=== PATIENT | female | born 1970 | race Caucasian/White ===

== ENCOUNTER 2018-04-26 07:47 | Day surgery (SDC) | END 2018-04-26 16:47 | disposition home or self-care (01) ==

== ENCOUNTER 2019-02-14 05:23 | Day surgery (SDC) | payer OTHER ==
[2019-02-14] VITALS (13 sets, daily range): BP systolic 103–118; BP diastolic 60–77; PULSE 68–78; RESP 14–20; Ht 157.5 cm; Wt 63.2 kg
[~2019-02-14] VITALS: Ht 157.5 cm; Wt 63.2 kg
[2019-02-14] MEDS ORDERED: POLYMYXIN/BACITRACIN 1L IRRIG ONE (06:58)
[2019-02-14] MEDS ORDERED: BUPIVACAINE 0.25% (MPF) 30 ML INJ ONE (06:58)
[2019-02-14] MEDS ORDERED: CYCL10TA7 PO (06:59)
[2019-02-14] MEDS ORDERED: SOD CHLORIDE 0.9% 1,000 ML IV ONE (07:00)
[2019-02-14] MEDS ORDERED: CEFAZOLIN 2 GM/50 ML (PMX) 50 ML IVPB SCH (07:00)
--- NOTE | 2019-02-14 07:12 | PREAC ---
Date/Time of Note Date/Time of Note DATE: 02/14/19 TIME: 07:11 Anesthesia Eval and Record Evaluation Time Pre-Procedure Interview DATE: 02/14/19 TIME: 07:11 Age 48 Sex female NPO: 8 hrs Preoperative diagnosis Right Inguinal Hernia Planned procedure Right Open Inguinal Hernia Repair Past Medical History Past Medical History: None Surgery & Anesthesia Issues No known issue Meds Anticoagulation: No Beta Emeka within 24 hr: No Reason Beta Emeka not given: Pt. not on B-Emeka Reported Medications Cyclobenzaprine Hcl* (Cyclobenzaprine Hcl*) 10 Mg Tablet, 10 MG PO DAILY PRN for MUSCLE SPASMS, #60 TAB 02/14/19 Current Medications Cefazolin Sodium/ Dextrose 50 ml @ 100 mls/hr PRE-OP IVPB ; Start 02/14/19 at 07:00; Stop 02/14/19 at 09:00 Sodium Chloride 1,000 ml @ 75 mls/hr [id number] ONCE IV ; Start 02/14/19 at 07:00; Stop 02/14/19 at 20:19 Meds reviewed: Yes Allergies Coded Allergies: No Known Allergy (Unverified , 02/14/19) NKA PER PRE-OP SHEET Allergies Reviewed: Yes Labs/Studies Labs Reviewed: Reviewed by anesthesiologist test: Negative Studies: ECG (n/a), CXR (n/a) Pre-procedure Exam Last vitals Vital Signs Date Temp Pulse Resp B/P (MAP) Pulse Ox O2 O2 Flow FiO2 Time Delivery Rate 02/14/19 97.8 78 18 117/77 99 Room Air 06:55 (90) Airway: Adequate mouth opening, Adequate thyromental dist Mallampati: Mallampati II Teeth: Normal Lung: Normal Heart: Normal ASA Physical Status ASA physical status: 2 Emergency: None Planned Anesthetic General/MAC: LMA Nerve block: TAP (right) Planned Pain Management Single shot nerve block, Parenteral pain med Pre-operative Attestations Prior to commencing anesthesia and surgery, the patient was re-evaluated, there was verification of: *The patient's identity *The results of appropriate recent lab work and preoperative vital signs *The above evaluation not changing prior to induction *Anesthetic plan, risk benefits, alternative and complications discussed with patient/family; questions answered; patient/family understands, accepts and wishes to proceed. ERIC ZHOU MD February 14, 2019 07:12
[2019-02-14] MEDS ORDERED: METOCLOPRAMIDE 10 MG INJ IV PRN (07:30)
[2019-02-14] MEDS ORDERED: FENTAnyl 50 MCG/ML VIAL IV PRN ×2 (07:30)
[2019-02-14] MEDS ORDERED: ONDANSETRON 4 MG INJ IV PRN (07:30)
[2019-02-14] MEDS ORDERED: LABETALOL HCL 20MG INJ IV PRN (07:30)
[2019-02-14] MEDS ORDERED: MEPERIDINE 25 MG INJ IV PRN (07:30)
[2019-02-14] MEDS ORDERED: HYDROmorphONE 1 MG/5 ML IV SYRINGE IV PRN ×2 (07:30)
[2019-02-14] MEDS ORDERED: OXYCODONE/ACETAMINOPHEN (5/325) TAB PO PRN (07:30)
[2019-02-14] MEDS ORDERED: EPHEDrine 25 MG/5 ML SYG IV PRN (07:30)
[2019-02-14] MEDS ORDERED: DIPHENHYDRAMINE 50 MG INJ IV PRN (07:30)
[2019-02-14] MEDS ORDERED: PROPOFOL 20 ML ONE (07:40)
[2019-02-14] MEDS ORDERED: ROPIVACAINE 0.2% 20 ML VIAL ONE (07:40)
[2019-02-14] MEDS ORDERED: FENTAnyl 50 MCG/ML VIAL ONE (07:40)
[2019-02-14] MEDS ORDERED: CEFAZOLIN 1 GM INJ ONE (07:40)
[2019-02-14] MEDS ORDERED: MIDAZOLAM 1 MG/ML 2 ML INJ ONE (07:40)
[2019-02-14] MEDS ORDERED: METOCLOPRAMIDE 10 MG INJ ONE (08:16)
[2019-02-14] MEDS ORDERED: ONDANSETRON 4 MG INJ ONE (08:16)
[2019-02-14] MEDS ORDERED: SUGAMMADEX SODIUM 200 MG/2 ML VIAL IV ONE (08:16)
[2019-02-14] MEDS ORDERED: KETOROLAC 30 MG INJ ONE (08:16)
[2019-02-14] MEDS ORDERED: DEXAMETHASONE 4 MG/ML 5 ML INJ ONE (08:16)
--- NOTE | 2019-02-14 08:22 | OPR ---
Date/Time of Note Date/Time of Note DATE: 02/14/19 TIME: 08:19 Operative Report Procedure Date: February 14, 2019 Preoperative Diagnosis incarcerated right inguinal hernia Postoperative Diagnosis same Operation/Procedure Performed open right incarcerated inguinal hernia repair with medium ultrapro hernia system mesh Surgeon see signature line Gastrointestinal Technician none Anesthesia Type: general Estimated Blood Loss: 0 - 10 ml's Transfusion none Specimen none Grafts/Implants none Complications none Pt Condition Post Procedure: stable Indications This is a 48-year-old female with symptomatic right incarcerated inguinal hernia. She required surgical repair of the hernia. Risks alternatives benefits and personal were discussed the patient. Potential complications including but not limited to bleeding infection recurrence of hernia mesh infection chronic pain were discussed with the patient. Patient expressed understanding and consents to the operation. Procedure Description Patient is taken to the OR and prepped and draped in usual sterile fashion. Surgical timeout was performed. IV antibiotics given. Right inguinal oblique incision made with a 10 blade. Dissection with cautery was carried down through Dunia's fascia and onto the external oblique. Externally fascia is open with a 15 blade. This incision is extended medially inferiorly lateral superiorly with Metzenbaum scissors. Round ligament is divided allowing for full reduction of the incarcerated hernia. The hernia was then bolstered with the disc portion of the ultra pro hernia system mesh. The disc is secured in place the running 0 Prolene from the pubic tubercle along the shelving edge of the inguinal ligament. Superiorly the disc is secured with interrupted 3-0 Vicryl. [place] mesh is secured in a similar fashion with a running 0 Prolene from the pubic tubercle along the shelving is unlimited. Superiorly the onlay mesh is secured to enter oblique with interrupted 3-0 Vicryl. External oblique is closed with running 3-0 Vicryl. Dunia's fascia was closed with interrupted 3-0 Vicryl. Skin is closed using inzorb observable skin stapler. A tap block was provided by the anesthesiologist. Stressors and dry dressings were applied. Marce VELOZ February 14, 2019 08:22
[2019-02-14] MEDS ORDERED: HYDROCODONE/APAP (5/325) TAB PO ONE (08:30)
--- NOTE | 2019-02-14 09:08 | PAC ---
Date/Time of Note Date/Time of Note DATE: 02/14/19 TIME: 09:08 Post-Anesthesia Notes Post-Anesthesia Note Last documented vital signs Vital Signs Date Temp Pulse Resp B/P (MAP) Pulse Ox O2 O2 Flow FiO2 Time Delivery Rate 02/14/19 97.8 78 18 117/77 99 Room Air 08:55 (90) Activity: WNL Respiratory function: WNL Cardiovascular function: WNL Mental status: Baseline Pain reasonably controlled: Yes Hydration appropriate: Yes Nausea/Vomiting absent: Yes ERIC ZHOU MD February 14, 2019 09:08
[2019-02-14] MEDS ORDERED: HYDROmorphONE 1 MG/ML SYG IV PRN ×2 (10:00)
--- NOTE | 2019-02-14 21:48 | RADRPT ---
Vent Rate: 76 bpm RR Interval: 788 msec [place] Interval: 198 msec QRS Duration: 90 msec QT Interval: 383 msec QTC Interval: 431 msec P-R-T [place]: 18 - 20 - 31 degrees Sinus rhythm...normal P axis, V-rate 50- 99 Electronically Signed By: Tolu Young
== END 2019-02-14 10:38 | disposition home or self-care (01) ==
LOC: SDS 05:23
PROVIDERS: ATTEND Surgery
DX: K40.30 Unilateral inguinal hernia, with obstruction, without gangrene, not specified as recurrent (principal); Z90.710 Acquired absence of both cervix and uterus
CPT/HCPCS: 49507; 71045; 85610; 85730; 93005; J0690; J1100; J1170; J1885; J2175; J2250; J2405; J2765; J2795; J3010; Z7610; C1781

== ENCOUNTER 2019-02-18 07:36 | Inpatient (IN) | payer OTHER ==
[~2019-02-18] VITALS: Ht 157.5 cm; Wt 64.1 kg
[~2019-02-18 07:36] MED LIST: CYCL10TA7 PO
[2019-02-18 07:37] VITALS: Ht 157.5 cm; Wt 64.1 kg
[2019-02-18] MEDS ORDERED: HYDROmorphONE 1 MG/ML SYG IV STA ×2 (08:05→08:40)
[2019-02-18] MEDS ORDERED: ONDANSETRON 4 MG INJ IV STA ×2 (08:05→08:40)
--- NOTE | 2019-02-18 08:09 | ERD ---
ER Documentation Chief Complaint Chief Complaint abdominal pain post hernia repair surgery HPI This is a 48-year-old female that presents to the emergency department severe abdominal pain. The patient is status post incarcerated right inguinal hernia repair with ultra pro hernia mesh that had been placed on February 14, 2019, postop day 4. The patient indicates that 3 AM, 5 hours prior to arrival she developed a mild pain in the right lower quadrant. She indicated that the pain significantly worsened and is now 10 out of 10 in intensity. She did have one bowel movement yesterday but states she has not passed gas. She has not experienced any emesis. She said no fevers or shaking or chills. She states the abdominal pain is exacerbated with movement or touch. She did not take any analgesic medication as she had been prescribed [place] but again did not take any medications. Her surgeon was Dr. Crespo. ROS All systems reviewed and are negative except as per history of present illness. Medications Home Meds Reported Medications Atorvastatin Calcium* (Atorvastatin Calcium*) 20 Mg Tablet, 20 MG PO QHS, #30 TAB 02/18/19 Cyclobenzaprine Hcl* (Cyclobenzaprine Hcl*) 10 Mg Tablet, 10 MG PO DAILY PRN for MUSCLE SPASMS, #60 TAB 02/14/19 Allergies Allergies: Coded Allergies: No Known Allergy (Unverified , 02/14/19) NKA PER PRE-OP SHEET PMhx/Soc History of Surgery: Yes (LT BREAST ,HYSTERECTOMY) Anesthesia Reaction: No Hx Neurological Disorder: No Hx Respiratory Disorders: No Hx Cardiac Disorders: No Hx Psychiatric Problems: No Hx Miscellaneous Medical Probl: No Hx Alcohol Use: No Hx Substance Use: No Hx Tobacco Use: No Physical Exam Vitals Vital Signs Date Temp Pulse Resp B/P (MAP) Pulse Ox O2 O2 Flow FiO2 Time Delivery Rate 02/18/19 98.2 72 20 136/89 98 Room Air 10:51 (105) 02/18/19 98.3 68 18 114/61 100 07:37 (78) Physical Exam Constitutional:Well-developed. Well-nourished. Patient tearful and appeared to be in a significant amount discomfort secondary to pain HEENT:Normocephalic. Atraumatic.Pupils were equal round reactive to light. Moist mucous membranes.No tonsillar exudates. Neck: No nuchal rigidity. No lymphadenopathy. No posterior cervical spine tenderness or step-offs. Respiratory: Not using accessory muscles of respiration.Lungs were clear to auscultation bilaterally. No rhonchi. No rales. No wheezing. Cardiovascular: Regular rate regular rhythm.No murmurs. No rubs were appr eciated.S1, S2 normal. Distal pulses are palpable 2+ bilaterally. GI: Abdomen was soft. Voluntary guarding with no rebound. Significant tenderness around the surgical incision scar in the right lower quadrant however surgical incision scars clean dry and intact with no surrounding erythema warmth or fluctuance. Non Distended. No pulsatile abdominal masses or bruits. Bowel sounds were present and normal. Muscle skeletal: Full range of motion of both the upper and lower extremities bilaterally.Normal muscle tone.No assymetrical calf tenderness or swelling. Skin: No petechia, no purpura. No lesions on the palms or the soles of the feet. No maculopapular rash. NEURO: Patient was alert, awake, orientated x3.No facial droop. Gait observed and normal with no ataxia.Speech had regular rate and rhythm. No focal neurological deficits. Result Diagram: 02/18/1925 02/18/19 0825 Results 24 hrs Laboratory Tests Test 02/18/19 08:25 White Blood Count 11.2 10^3/ul Red Blood Count 5.13 10^6/ul Hemoglobin 15.4 g/dl Hematocrit 45.9 % Mean Corpuscular Volume 89.5 fl Mean Corpuscular Hemoglobin 30.0 pg Mean Corpuscular Hemoglobin Concent 33.6 g/dl Red Cell Distribution Width 12.3 % Platelet Count 263 10^3/UL Mean Platelet Volume 9.4 fl Immature Granulocytes % 7.100 % Neutrophils % % Segmented Neutrophils % (Manual) 63 % Band Neutrophils % (Manual) 1 % Lymphocytes % % Lymphocytes % (Manual) 25 % Reactive Lymphocytes % (Manual) 3 % Monocytes % % Monocytes % (Manual) 4 % Eosinophils % % Eosinophils % (Manual) 1 % Basophils % % Myelocytes % (Manual) 3 % Nucleated Red Blood Cells % 0.0 /100WBC Immature Granulocytes # 0.800 10^3/ul Neutrophils # 10^3/ul Neutrophils # (Manual) 7.1 10^3/ul Band Neutrophils # 0.1 10^3/ul Lymphocytes (Manual) 2.8 10^3/ul Lymphocytes # 10^3/ul Reactive Lymphocytes # 0.3 10^3/ul Monocytes # 10^3/ul Monocytes # (Manual) 0.4 10^3/ul Eosinophils # 10^3/ul Basophils # 10^3/ul Myelocytes # 0.3 10^3/ul Nucleated Red Blood Cells # 10^3/ul Platelet Estimate NORMAL Anisocytosis 1+ Microcytosis 1+ Prothrombin Time 12.6 Sec Prothrombin Time Ratio 1.0 INR International Normalized Ratio 0.93 Activated Partial Thromboplast Time 25.6 Sec Sodium Level 137 mmol/L Potassium Level 4.6 mmol/L Chloride Level 104 mmol/L Carbon Dioxide Level 23 mmol/L Anion Gap 10 Blood Urea Nitrogen 16 mg/dl Creatinine 0.80 mg/dl Est Glomerular Filtrat Rate mL/min > 60 mL/min Glucose Level 121 mg/dl Calcium Level 9.8 mg/dl Total Bilirubin 0.8 mg/dl Direct Bilirubin 0.00 mg/dl Indirect Bilirubin 0.8 mg/dl Aspartate Amino Transf (AST/SGOT) 18 IU/L Alanine Aminotransferase (ALT/SGPT) 32 IU/L Alkaline Phosphatase 86 IU/L Total Protein 7.0 g/dl Albumin 4.1 g/dl Globulin 2.90 g/dl Albumin/Globulin Ratio 1.41 Amylase Level 49 U/L Lipase 31 U/L Current Medications Medications Dose Sig/Trinity Start Time Status Last (Trade) Ordered Route PRN Stop Time Admin Dose Reason Admin 1 mg ONCE STAT 02/18/19 DC 02/18/19 Hydromorphone IV 08:05 08:13 HCl 02/18/19 08:07 (Dilaudid) Ondansetron 4 mg ONCE STAT 02/18/19 DC 02/18/19 HCl (Zofran IV 08:05 08:14 Inj) 02/18/19 08:07 1 mg ONCE STAT 02/18/19 DC 02/18/19 Hydromorphone IV 08:40 08:50 HCl 02/18/19 08:42 (Dilaudid) Ondansetron 4 mg ONCE STAT 02/18/19 DC 02/18/19 HCl (Zofran IV 08:40 08:51 Inj) 02/18/19 08:42 IV Flush 10 ml STK-MED 02/18/19 DC 02/18/19 (NS 10 ml) ONCE .ROUTE 09:09 09:25 02/18/19 09:10 Sodium 100 ml @ ud STK-MED 02/18/19 DC 02/18/19 Chloride ONCE .ROUTE 09:09 09:28 02/18/19 09:10 Iohexol 150 ml STK-MED 02/18/19 DC 02/18/19 (Omnipaque ONCE .ROUTE 09:09 09:25 300mg/ ml) 02/18/19 09:10 Piperacillin 100 ml @ ONCE STAT 02/18/19 DC 02/18/19 Sod/ 200 mls/hr IVPB 11:53 12:34 Tazobactam 02/18/19 12:22 Sod 12 mg ONCE SC 02/18/19 Methylnaltrex 12:00 one [place] (Relistor) Sodium 133 ml ONCE ONCE 02/18/19 DC 02/18/19 Biphosphate/ FL 12:00 12:34 Sodium 02/18/19 12:01 Phosphate (Fleet Enema) Ondansetron 4 mg BRIDGE ORDER 02/18/19 HCl (Zofran PRN IV 12:30 Inj) NAUSEA/VOMITI 02/19/19 12:29 NG 650 mg ER BRIDGE 02/18/19 Acetaminophen PRN PO 12:30 (Tylenol .MILD PAIN 02/19/19 12:29 Tab) 1-3 OR TEMP 1 mg ONCE STAT 02/18/19 DC Hydromorphone IV 12:35 HCl 02/18/19 12:41 (Dilaudid) Procedures/MDM This patient presented to the emergency department with abdominal pain and was seen and evaluated by myself. My differential diagnosis included but was not limited to abdominal aortic aneurysm, appendicitis, pancreatitis, perforated peptic ulcer, perforated viscus or visceral pain such as diverticulitis, DKA, esophagitis, hepatitis or bowel obstruction. The patient was placed on a waste collection driver, continuous pulse oximetry, and IV access was established by nursing staff. The patient was given intravenous Dilaudid and Zofran and required further doses of analgesic medication as her pain did not improve. Due to the patient's abdominal findings on physical exam I do feel is necessary to obtain a CT scan with IV contrast. This was reviewed by the radiologist whom I spoke with. There was subcutaneous emphysema along the right lower ventral abdominal wall and right inguinal canal that appeared to be postsurgical changes most likely a seroma. However the radiologist stated they could not rule out early or developing abscess. However the patient was afebrile with no leukocytosis. The patient did have a tubular soft tissue density structure that was along the cecum. This could represent a Meckel's diverticulum. At this time I did contact the patient's surgeon Dr. Crespo who kindly came to the bedside to evaluate the patient. His clinical suspicion was low for postoperative abscess as well as mine. However given the patient's pain did not improve despite multiple doses of analgesic medication she will prophylactically receive IV antibiotics which include Zosyn. Her symptoms also appear to be a result of constipation secondary to opiate induced constipation as she had previously been taking [place] but stated she stopped taking this in the past 24 hours. The patient received Relistor as well as a Fleet enema. She will be admitted under the care of Dr. Rogers for observation for pain control. Departure Diagnosis: Primary Impression: Postoperative pain Additional Impression: Constipation Constipation type: unspecified constipation type Qualified Codes: K59.00 - Constipation, unspecified Condition: Serious RANDY JAY MD February 18, 2019 08:09
[2019-02-18] MEDS ORDERED: SOD CHLORIDE 0.9% 100 ML ONE (09:09)
[2019-02-18] MEDS ORDERED: IOHEXOL 300MG/ML 150 ML BTL ONE (09:09)
[2019-02-18] MEDS ORDERED: PIPER-TAZO 3.375 GM IV (PMX) 100 ML IVPB STA (11:53)
[2019-02-18] MEDS ORDERED: NA PHOSPHATE/BIPHOS 133 ML ENEMA PR ONE (12:00)
[2019-02-18] MEDS: METHYLNALTREXONE 12 MG/0.6 ML VIAL SC SCH ×2 (12:00→15:54)
[2019-02-18] MEDS ORDERED: ATOR20TA38 PO (12:23)
[2019-02-18] MEDS ORDERED: ONDANSETRON 4 MG INJ IV PRN (12:30)
[2019-02-18] MEDS ORDERED: ACETAMINOPHEN 325 MG TAB PO PRN ×2 (12:30→15:30)
[2019-02-18] MEDS ORDERED: HYDROmorphONE 0.5 MG/0.5 ML SYG IV STA (12:35)
--- NOTE | 2019-02-18 14:03 | CONS ---
DATE OF ADMISSION: 02/18/2019 DATE OF CONSULTATION: 02/18/2019 TYPE OF CONSULTATION: ER, note for general surgery. INDICATION: This is a 48-year-old female who recently had inguinal hernia repair with mesh approxima tely 3 days ago. Postoperatively, the patient was doing well, tolerating pain medication; however, t he patient started to be constipated and had some abdominal pain. She has diffuse abdominal pain. N o nausea or vomiting. No fevers at home. She was evaluated in the ER with blood work showing that s he has no leukocytosis. CT scan was performed showing severe constipation. No other findings on the CAT scan. She does not have any evidence of any small-bowel obstruction. General surgery was consu lted for evaluation. PHYSICAL EXAMINATION: VITAL SIGNS: Afebrile. Vital signs are stable. ABDOMEN: Soft. Incision is clean, dry and intact. She has some right lower quadrant appropriate te nderness and some distention. ASSESSMENT AND PLAN: This is a 48-year-old female status post inguinal hernia repair with severe con stipation. We will attempt enema in the ER. If she does not resolve, she will be admitted to the [facility] for monitoring and pain management. We will follow with the patient in the hospital and is ad mitted. Otherwise, she can see me in the office in clinic. Dictated By: PURVI VELOZ MD SB/REILLY Conf#: [id number] DID#: [id number] CC: ISAC VO MD;*EndCC*
[2019-02-18 14:58] VITALS: BP 119/72; PULSE 82; RESP 18
[2019-02-18] MEDS ORDERED: morphine 2 MG INJ IV PRN (16:00)
[2019-02-18] MEDS: HYDROCODONE/APAP (5/325) TAB PO PRN (16:59)
[2019-02-18] MEDS: HYDROmorphONE 1 MG/ML SYG IV PRN ×2 (19:05→23:16)
[2019-02-18 20:28] VITALS: BP 106/67; PULSE 83; RESP 18
[2019-02-19 01:54] VITALS: BP 104/62; PULSE 83; RESP 18
--- NOTE | 2019-02-19 02:19 | HP ---
DATE OF ADMISSION: 02/18/2019 CHIEF COMPLAINT AND HISTORY OF PRESENT ILLNESS: The patient is a 48-year-old female who recently und erwent a surgery for incarcerated right inguinal hernia on 02/14/2019. The patient was brought into hospital by Dr. Crespo for open right incarcerated inguinal hernia repair with mesh. The patient was di scharged home on the same day; however, the patient returned to ER today with abdominal pain and cons tipation. Pain was rather diffuse; however, it was not associated with fever or chills. No associat ed nausea, vomiting. The patient did not have any abdominal distention. The patient did not have an y fever or chills. The patient was seen in ER and underwent CT of the abdomen and pelvis which revea led postsurgical changes from right inguinal hernia repair. The patient also had been constipated. The patient was seen by Dr. Crespo in the emergency room and diagnosed her with severe constipation. Th e patient is being admitted for further evaluation and management. The patient denies any chest pain or shortness of breath. No history of fever or chills. No history of headache, dizziness, syncope. No history of any joint pain. No history of skin rash. REVIEW OF SYSTEMS: Unremarkable. PAST MEDICAL HISTORY: As stated above. In addition, the patient has history of left partial mastect jacque back in 2018 for breast mass. Pathology, however, revealed fibroadenomatoid nodule. No evidence of malignancy. ALLERGIES: NONE. SOCIAL HISTORY: No smoking or alcohol. FAMILY HISTORY: Noncontributory. PHYSICAL EXAMINATION: GENERAL: Revealed the patient to be awake, alert. VITAL SIGNS: Temperature 98.3, pulse 60, respiration 18, blood pressure 114/61, O2 sat is 100% on ro om air. HEENT: No eye discharge or redness. Conjunctivae and lids are normal. Oropharynx is clear. NECK: Supple. No mass, no thyromegaly. CHEST: Fairly clear. CARDIOVASCULAR: S1, S2 normal. No murmur. ABDOMEN: Soft with mild right lower quadrant tenderness and distention. No signs of wound infection . Bowel sounds plus. EXTREMITIES: No leg edema. NEUROLOGIC: The patient is awake, alert, fairly oriented with no gross focal deficit. LABORATORY DATA: Done in the ER: WBC 11.2, hemoglobin 15.4. Chem-18: Sodium 137, potassium 4.6, B UN 16, creatinine 0.8, glucose 121. Liver enzymes are normal. IMPRESSION: Severe constipation. The patient will be given Fleet enema. The patient also received methylnaltrexone in the ER in addition to IV Zosyn. The patient also will be started on MiraLax twic e a day. We will use SCD for deep venous thrombosis prophylaxis. For pain, the patient will be give n Tylenol, He[place], IV Dilaudid for pain control. Further recommendation will depend on patient's hosp ital course. Dictated By: ISAC VO MD AB/NTS Conf#: [id number] DID#: [id number] CC: PURVI CRESPO MD;*End*
[2019-02-19] MEDS: HYDROmorphONE 1 MG/ML SYG IV PRN ×2 (04:56→09:26)
[2019-02-19 07:57] VITALS: BP 107/64; PULSE 82; RESP 18
[2019-02-19] MEDS: POLYETHYLENE GLYCOL 17 GM PACKET PO SCH ×2 (09:26→19:57)
[2019-02-19] MEDS ORDERED: BISACODYL 10 MG SUPP PR ONE (13:30)
[2019-02-19] MEDS: KETOROLAC 30 MG INJ IV SCH ×2 (13:54→19:47)
[2019-02-19] MEDS: METHYLNALTREXONE 12 MG/0.6 ML VIAL SC SCH (13:54)
[2019-02-19] MEDS ORDERED: FAMOTIDINE 20 MG INJ IV SCH (14:00)
[2019-02-19 14:15] VITALS: BP 116/71; PULSE 99; RESP 16
--- NOTE | 2019-02-19 16:34 | PN ---
DATE: 02/19/2019 SUBJECTIVE: Followup on abdominal pain, recent surgery for incarcerated right inguinal hernia. The patient continues to have abdominal pain mostly in the mid abdomen. The patient reported the incisio n site does not hurt as much as before and there is only minimal discomfort there. The patient did n ot have any nausea or vomiting. No reported abdominal distention. The patient did not have any temp erature spike. PHYSICAL EXAMINATION: GENERAL: The patient is awake, alert. VITAL SIGNS: Temperature 98.5, pulse 82, respiration 18, blood pressure , O2 saturation 97% on room air. HEENT: No eye discharge or redness. Conjunctivae normal. Oropharynx clear. NECK: No mass. CHEST: Fairly clear. CARDIOVASCULAR: S1, S2 normal. ABDOMEN: Soft, nondistended, no rebound tenderness. The patient has mid abdomen and slightly on the right side tenderness. Incision is clean, no discharge. Bowel sounds plus. EXTREMITIES: No leg edema. NEUROLOGIC: The patient is awake, alert, fairly oriented. LABORATORY DATA: WBC 15.6, but no left shift. Chemistry unremarkable. IMPRESSION: 1. Abdominal pain with recent surgery for incarcerated right inguinal hernia. 2. Constipation. PLAN: We will decrease opiates and we will continue and the MiraLax. We will also add Dulcola x suppository. The patient does not look toxic despite elevation of WBC count today. We will contin ue to monitor off antibiotic. We will do followup CBC. If white count continues to go up, we will o btain ID consult. Further recommendation from surgery pending. Dictated By: ISAC GARCIA/REILLY Conf#: [id number] DID#: [id number]
--- NOTE | 2019-02-19 17:36 | PN ---
Date/Time of Note Date/Time of Note DATE: 02/19/19 TIME: 17:35 Assessment/Plan VTE Prophylaxis Risk score (from Ns)>0 risk: 2 SCD applied (from Ns): Yes Pharmacological prophylaxis: other Lines/Catheters IV Catheter Type (from [facility]): [place] Urinary Cath still in place: No Assessment/Plan Assessment/Plan s/p RIH with development of constipation will attempt soap suds enema and mineral oil enema Result Diagram: 02/19/1960102/19/1902 Results 24hrs Laboratory Tests Test 02/19/19 06:02 White Blood Count 15.6 #H Red Blood Count 4.66 Hemoglobin 14.1 Hematocrit 42.4 Mean Corpuscular Volume 91.0 Mean Corpuscular Hemoglobin 30.3 Mean Corpuscular Hemoglobin Concent 33.3 Red Cell Distribution Width 12.4 Platelet Count 239 Mean Platelet Volume 9.4 Immature Granulocytes % 3.100 H Neutrophils % 74.1 Lymphocytes % 15.6 Monocytes % 6.0 Eosinophils % 0.6 Basophils % 0.6 Nucleated Red Blood Cells % 0.0 Immature Granulocytes # 0.490 H Neutrophils # 11.6 H Lymphocytes # 2.4 Monocytes # 0.9 Eosinophils # 0.1 Basophils # 0.1 Nucleated Red Blood Cells # 0.0 Sodium Level 139 Potassium Level 4.3 Chloride Level 105 Carbon Dioxide Level 28 Anion Gap 6 Blood Urea Nitrogen 12 Creatinine 0.82 Est Glomerular Filtrat Rate mL/min > 60 Glucose Level 101 Calcium Level 8.9 Subjective 24 Hr Interval Summary Free Text/Dictation severe constipation after RIH repair had enema with no resolution Exam/Review of Systems Exam Vitals Vital Signs Date Temp Pulse Resp B/P (MAP) Pulse Ox O2 O2 Flow FiO2 Time Delivery Rate 02/19/19 98.4 99 16 116/71 97 14:15 (86) 02/18/19 Room Air 14:58 Intake and Output 02/18/19 02/18/19 02/19/19 1515:00 23:00 07:00 IntakeIntake Total 440 ml 320 ml OutputOutput Total 320 ml BalanceBalance 440 ml 0 ml Exam c/d/i distended abdomen Results Results 24hrs Laboratory Tests Test 02/19/19 06:02 White Blood Count 15.6 #H Red Blood Count 4.66 Hemoglobin 14.1 Hematocrit 42.4 Mean Corpuscular Volume 91.0 Mean Corpuscular Hemoglobin 30.3 Mean Corpuscular Hemoglobin Concent 33.3 Red Cell Distribution Width 12.4 Platelet Count 239 Mean Platelet Volume 9.4 Immature Granulocytes % 3.100 H Neutrophils % 74.1 Lymphocytes % 15.6 Monocytes % 6.0 Eosinophils % 0.6 Basophils % 0.6 Nucleated Red Blood Cells % 0.0 Immature Granulocytes # 0.490 H Neutrophils # 11.6 H Lymphocytes # 2.4 Monocytes # 0.9 Eosinophils # 0.1 Basophils # 0.1 Nucleated Red Blood Cells # 0.0 Sodium Level 139 Potassium Level 4.3 Chloride Level 105 Carbon Dioxide Level 28 Anion Gap 6 Blood Urea Nitrogen 12 Creatinine 0.82 Est Glomerular Filtrat Rate mL/min > 60 Glucose Level 101 Calcium Level 8.9 Medications Medication Current Medications Acetaminophen/ Hydrocodone Bitart ([place] (5/325)) 1 tab Q4H PRN PO MODERATE PAIN LEVEL 4-6 Last administered on 02/18/19at 16:59; Admin Dose 1 TAB; Start 02/18/19 at 15:30 Ondansetron HCl (Zofran Inj) 4 mg Q4H PRN IV NAUSEA AND/OR VOMITING; Start 02/18/19 at 15:30 Acetaminophen (Tylenol Tab) 325 mg Q4H PRN PO MILD PAIN(1-3)OR ELEVATED TEMP; Start 02/18/19 at 15:30 Polyethylene Glycol (Miralax) 17 gm BID PO Last administered on 02/19/19at 0 9:26; Admin Dose 17 GM; Start 02/19/19 at 09:00 Ketorolac Tromethamine (Toradol) 30 mg Q6H IV Last administered on 02/19/19at 13:54; Admin Dose 30 MG; Start 02/19/19 at 13:30; Stop 02/22/19 at 13:29 Methylnaltrexone [place] (Relistor) 12 mg DAILY SC Last administered on 02/19/19at 13:54; Admin Dose 12 MG; Start 02/19/19 at 13:30 Pantoprazole (Protonix Tab) 40 mg DAILY@06 PO ; Start 02/20/19 at 06:00 Marce VELOZ February 19, 2019 17:36
[2019-02-19] MEDS ORDERED: LACTULOSE 30ML CUP PO PRN (18:00)
--- NOTE | 2019-02-19 18:28 | CONS ---
DATE OF ADMISSION: 02/18/2019 DATE OF CONSULTATION: Dear Dr. Vo: Thank you for asking me to see Mrs. Nesbitt on a GI consultation. HISTORY OF PRESENT ILLNESS: As you know, Dominique is a 48-year-old female who underwent a rig ht inguinal hernia which is in an open approach last and she developed pain and she got admi tted to the hospital yesterday. She complains of right lower quadrant pain, suprapubic pain, as well as left lower quadrant pain, but she had inguinal hernia operated on the right side. No nausea, vomiting. No GI bleeding. She had a bowel movement three days ago, but despite an enema, she did not have any bowel movement yesterday or today. No history of chills. No history of jaundice. No diarrhea, no GI bleeding. PAST MEDICAL HISTORY: She had a left breast tumor operated. She also has hysterectomy. SOCIAL HISTORY: The patient does not smoke or drink. PHYSICAL EXAMINATION: GENERAL: The patient is a 48-year-old female who at this time is quite alert, well built. VITAL SIGNS: She is afebrile. The blood pressure is 116/71. CARDIOVASCULAR: Normal heart sounds. RESPIRATORY: Normal breath sounds. ABDOMEN: Soft abdomen. There is evidence of a surgical scar noted in the right groin area in the in guinal area. No tenderness noted at this part. However, the suprapubic region and left lower quadra nt region, there is evidence of some tenderness appreciated. The CAT scan of the abdomen shows postsurgical changes from the right inguinal hernia repair. There is subcutaneous emphysema along the right lower ventral abdominal wall and right inguinal canal. Sma ll fluid is seen within the right inguinal canal. Findings less likely reflect postoperative changes . A developing abscess cannot be excluded on this examination. Tubular soft tissue density structur e along the cecum separate from the terminal ileum and appendix. These findings may reflect divertic ulum. Neoplastic process is not excluded on this examination. Based on the above findings, it is likely that she has an abscess in the right inguinal area. She also has a soft tissue mass in the cecal area. PLAN: At this time, recommend adding Zosyn and Flagyl. Also, recommend ultrasound of that right rashmi in area to see if there is any abscess. I discussed this case with Dr. Veloz. Once again, Dr. Vo, thank you for this consultation. Dictated By: DAVID JEFFREY/NTS Conf#: [id number] DID#: [id number] CC: ISAC VO MD; PURVI VELOZ MD;*EndCC*
[2019-02-19] MEDS ORDERED: MINERAL OIL 133 ML ENEMA PR ONE (18:30)
[2019-02-19] MEDS: PIPER-TAZO 3.375 GM IV (PMX) 100 ML IVPB SCH (18:47)
[2019-02-19] MEDS: metroNIDAZOLE 500 MG/NS (PMX) 100 ML IVPB SCH (19:53)
[2019-02-19 20:00] VITALS: BP 113/71; PULSE 92; RESP 18
[2019-02-20] MEDS: KETOROLAC 30 MG INJ IV SCH ×4 (01:25→19:52)
[2019-02-20 02:17] VITALS: BP 104/56; PULSE 90; RESP 16
[2019-02-20] MEDS: PIPER-TAZO 3.375 GM IV (PMX) 100 ML IVPB SCH ×3 (05:53→23:14)
[2019-02-20] MEDS: PANTOPRAZOLE (EC) 40 MG TAB PO SCH (05:54)
[2019-02-20] MEDS: metroNIDAZOLE 500 MG/NS (PMX) 100 ML IVPB SCH ×3 (06:29→21:28)
[2019-02-20 08:00] VITALS: BP 90/55; PULSE 78; RESP 16
[2019-02-20] MEDS: POLYETHYLENE GLYCOL 17 GM PACKET PO SCH ×2 (08:11→21:28)
[2019-02-20] MEDS: METHYLNALTREXONE 12 MG/0.6 ML VIAL SC SCH (08:12)
[2019-02-20 14:30] VITALS: BP 100/60; PULSE 69; RESP 16
--- NOTE | 2019-02-20 18:07 | PN ---
DATE: 02/20/2019 SUBJECTIVE: The patient's abdominal pain is better. The patient did have 1 bowel movement. No repo rted abdominal distention. No reported vomiting. No reported fever or chills. PHYSICAL EXAMINATION: GENERAL: Revealed the patient to be awake, alert. VITAL SIGNS: Temperature 98.1, pulse 69, respirations 16, blood pressure 100/60, O2 saturation 97% o n room air. HEENT: No eye discharge or redness. NECK: No mass. CHEST: Fairly clear. CARDIOVASCULAR: S1, S2 normal. ABDOMEN: Soft, nondistended. Decreased tenderness. Bowel sounds plus. EXTREMITIES: No leg edema. NEUROLOGIC: The patient is awake, alert, fairly oriented. LABORATORY DATA: Done today, WBC 15 down from 15.6, no left shift. Chemistry unremarkable. IMPRESSION: Abdominal pain and constipation in view of recent history of right inguinal hernia repai r. The patient was seen by Dr. Curtis yesterday and recommended IV Zosyn and Flagyl and also recomme nded local ultrasound of the right groin area. There was a fluid collection in the right inguinal re gion approximately 1 x 6.4 x 2.7 cm. We will wait for further recommendation from Dr. Veloz and Dr. Karri tellez. We will do followup CBC tomorrow. Continue clear liquid diet. Dictated By: ISAC VO MD AB/NTS Conf#: [id number] DID#: [id number] CC: PURVI VELOZ MD;*EndCC*
[2019-02-20 20:00] VITALS: BP 111/71; PULSE 90; RESP 18
--- NOTE | 2019-02-20 20:23 | CONS ---
DATE OF ADMISSION: 02/20/2019 DATE OF CONSULTATION: 02/20/2019 CLINICAL IMPRESSION: The patient was admitted with lower abdominal pain. Recently, the patient unde rwent inguinal hernia repair. The CAT scan of the abdomen shows evidence of a possible right inguin al area abscess. At this time, pelvic ultrasound was done from this location and pelvic ultrasound a t this location showed evidence of a 6 cm fluid collection, probably abscess. PHYSICAL EXAMINATION: VITAL SIGNS: Temperature 98.1. GENERAL: The patient is alert, afebrile. CARDIOVASCULAR: Normal heart sounds. RESPIRATORY: Normal breath sounds. ABDOMEN: Soft abdomen, minimal tenderness noted right inguinal area. LABORATORY WORKUP: WBC is white count is 15,000. CLINICAL IMPRESSION: Right inguinal area abscess. PLAN: Recommend ultrasound-guided aspiration of the abscess. Dictated By: DVAID COUGHLIN MD NC/NTS Conf#: [id number] DID#: [id number] CC: ISAC VO MD; PURVI VELOZ MD;*End*
[2019-02-21] MEDS: KETOROLAC 30 MG INJ IV SCH ×4 (01:07→19:28)
[2019-02-21 02:00] VITALS: BP 98/56; PULSE 81; RESP 18
[2019-02-21] MEDS: PIPER-TAZO 3.375 GM IV (PMX) 100 ML IVPB SCH ×3 (05:33→22:54)
[2019-02-21] MEDS: PANTOPRAZOLE (EC) 40 MG TAB PO SCH (06:00)
[2019-02-21] MEDS: metroNIDAZOLE 500 MG/NS (PMX) 100 ML IVPB SCH ×2 (06:18→14:19)
[2019-02-21 08:44] VITALS: BP 100/67; PULSE 77; RESP 18
[2019-02-21] MEDS: POLYETHYLENE GLYCOL 17 GM PACKET PO SCH ×2 (09:00→21:38)
[2019-02-21] MEDS: METHYLNALTREXONE 12 MG/0.6 ML VIAL SC SCH (09:00)
--- NOTE | 2019-02-21 11:53 | PN ---
Date/Time of Note Date/Time of Note DATE: 02/21/19 TIME: 11:48 Assessment/Plan VTE Prophylaxis Risk score (from Ns)>0 risk: 2 SCD applied (from Ns): Yes Pharmacological prophylaxis: other Lines/Catheters IV Catheter Type (from Nrs): Saline Lock Urinary Cath still in place: No Assessment/Plan Assessment/Plan s/p RIH with seroma vs hematoma vs abscess patient is getting aspiration under imaging will continue to follow patient can get regular diet after the procedure Result Diagram: 02/21/1919 02/21/1919 Results 24hrs Laboratory Tests Test 02/21/19 06:19 White Blood Count 12.1 H Red Blood Count 4.34 Hemoglobin 13.0 Hematocrit 39.9 Mean Corpuscular Volume 91.9 Mean Corpuscular Hemoglobin 30.0 Mean Corpuscular Hemoglobin Concent 32.6 Red Cell Distribution Width 12.3 Platelet Count 200 Mean Platelet Volume 9.7 Immature Granulocytes % 3.900 H Neutrophils % 74.4 Lymphocytes % 14.2 L Monocytes % 5.1 Eosinophils % 1.7 Basophils % 0.7 Nucleated Red Blood Cells % 0.0 Immature Granulocytes # 0.470 H Neutrophils # 9.0 H Lymphocytes # 1.7 Monocytes # 0.6 Eosinophils # 0.2 Basophils # 0.1 Nucleated Red Blood Cells # 0.0 Sodium Level 139 Potassium Level 4.2 Chloride Level 110 Carbon Dioxide Level 24 Anion Gap 5 Blood Urea Nitrogen 17 Creatinine 0.87 Est Glomerular Filtrat Rate mL/min > 60 Glucose Level 85 Calcium Level 8.4 Subjective 24 Hr Interval Summary Free Text/Dictation patient has an u/s showing seroma vs hematoma vs abscess it is scheduled this morning Exam/Review of Systems Exam Vitals Vital Signs Date Temp Pulse Resp B/P (MAP) Pulse Ox O2 O2 Flow FiO2 Time Delivery Rate 02/21/19 98.0 77 18 100/67 95 Room Air 08:44 (78) Intake and Output 02/20/19 02/20/19 02/21/19 1515:00 23:00 07:00 IntakeIntake Total 200 ml 1200 ml 200 ml BalanceBalance 200 ml 1200 ml 200 ml Exam c/d/i Results Results 24hrs Laboratory Tests Test 02/21/19 06:19 White Blood Count 12.1 H Red Blood Count 4.34 Hemoglobin 13.0 Hematocrit 39.9 Mean Corpuscular Volume 91.9 Mean Corpuscular Hemoglobin 30.0 Mean Corpuscular Hemoglobin Concent 32.6 Red Cell Distribution Width 12.3 Platelet Count 200 Mean Platelet Volume 9.7 Immature Granulocytes % 3.900 H Neutrophils % 74.4 Lymphocytes % 14.2 L Monocytes % 5.1 Eosinophils % 1.7 Basophils % 0.7 Nucleated Red Blood Cells % 0.0 Immature Granulocytes # 0.470 H Neutrophils # 9.0 H Lymphocytes # 1.7 Monocytes # 0.6 Eosinophils # 0.2 Basophils # 0.1 Nucleated Red Blood Cells # 0.0 Sodium Level 139 Potassium Level 4.2 Chloride Level 110 Carbon Dioxide Level 24 Anion Gap 5 Blood Urea Nitrogen 17 Creatinine 0.87 Est Glomerular Filtrat Rate mL/min > 60 Glucose Level 85 Calcium Level 8.4 Medications Medication Current Medications Acetaminophen/ Hydrocodone Bitart ([place] (5/325)) 1 tab Q4H PRN PO MODERATE PAIN LEVEL 4-6 Last administered on 02/18/19at 16:59; Admin Dose 1 TAB; Start 02/18/19 at 15:30 Ondansetron HCl (Zofran Inj) 4 mg Q4H PRN IV NAUSEA AND/OR VOMITING; Start 02/18/19 at 15:30 Acetaminophen (Tylenol Tab) 325 mg Q4H PRN PO MILD PAIN(1-3)OR ELEVATED TEMP; Start 02/18/19 at 15:30 Polyethylene Glycol (Miralax) 17 gm BID PO Last administered on 02/20/19at 21:28; Admin Dose 17 GM; Start 02/19/19 at 09:00 Ketorolac Tromethamine (Toradol) 30 mg Q6H IV Last administered on 02/21/19at 07:45; Admin Dose 30 MG; Start 02/19/19 at 13:30; Stop 02/22/19 at 13:29 Methylnaltrexone [place] (Relistor) 12 mg DAILY SC Last administered on 02/20/19at 08:12; Admin Dose 12 MG; Start 02/19/19 at 13:30 Pantoprazole (Protonix Tab) 40 mg DAILY@06 PO Last administered on 02/20/19 05:54; Admin Dose 40 MG; Start 02/20/19 at 06:00 Lactulose (Enulose) 20 gm Q8 PRN PO CONSTIPATION; Start 02/19/19 at 18:00 Piperacillin Sod/ Tazobactam Sod 100 ml @ 200 mls/hr Q8 IVPB Last administered on 02/21/19at 05:33; Admin Dose 200 MLS/HR; Start 02/19/19 at 18:00 Metronidazole 100 ml @ 100 mls/hr Q8 IVPB Last administered on 02/21/19at 06:18; Admin Dose 100 MLS/HR; Start 02/19/19 at 18:30 Marce VELOZ February 21, 2019 11:53
[2019-02-21] MEDS ORDERED: 1/2 NS + KCL 20 MEQ 1,000 ML IV SCH (13:00)
[2019-02-21] MEDS ORDERED: LIDOCAINE 1% (MDV) 20 ML INJ ONE (13:17)
[2019-02-21] MEDS: ONDANSETRON 4 MG INJ IV PRN ×2 (15:05→21:38)
[2019-02-21 16:09] VITALS: BP 122/87; RESP 18
[2019-02-21] MEDS: HYDROCODONE/APAP (5/325) TAB PO PRN ×2 (17:12→23:04)
--- NOTE | 2019-02-21 18:28 | PN ---
Date/Time of Note Date/Time of Note DATE: 02/21/19 TIME: 18:17 Assessment/Plan VTE Prophylaxis Risk score (from Ns)>0 risk: 2 SCD applied (from Ns): Yes Pharmacological prophylaxis: NA/contraindicated Pharm contraindication: surgical contra Lines/Catheters IV [facility]from [facility] Saline Lock Urinary Cath still in place: No Assessment/Plan Hospital Course Patient is status post aspiration of right inguinal hematoma, I ordered cultures, patient is afebrile currently on Zosyn. Patient complains of headache, relieved with [place]. Assessment/Plan -Right inguinal postoperative hematoma versus seroma versus abscess, status aspiration of a right inguinal post-operative hematoma. -Abdominal pain with recent surgery for incarcerated right inguinal hernia by Dr. Crespo. Dr. Curtis is following in gastroenterology consultation. -Constipation, resolved. Further recommendations based on clinical course. Plan of care discussed with Dr. Lee. Result Diagram: 02/21/19 0619 02/21/19 0619 Results 24hrs Laboratory Tests Test 02/21/19 06:19 White Blood Count 12.1 H Red Blood Count 4.34 Hemoglobin 13.0 Hematocrit 39.9 Mean Corpuscular Volume 91.9 Mean Corpuscular Hemoglobin 30.0 Mean Corpuscular Hemoglobin Concent 32.6 Red Cell Distribution Width 12.3 Platelet Count 200 Mean Platelet Volume 9.7 Immature Granulocytes % 3.900 H Neutrophils % 74.4 Lymphocytes % 14.2 L Monocytes % 5.1 Eosinophils % 1.7 Basophils % 0.7 Nucleated Red Blood Cells % 0.0 Immature Granulocytes # 0.470 H Neutrophils # 9.0 H Lymphocytes # 1.7 Monocytes # 0.6 Eosinophils # 0.2 Basophils # 0.1 Nucleated Red Blood Cells # 0.0 Sodium Level 139 Potassium Level 4.2 Chloride Level 110 Carbon Dioxide Level 24 Anion Gap 5 Blood Urea Nitrogen 17 Creatinine 0.87 Est Glomerular Filtrat Rate mL/min > 60 Glucose Level 85 Calcium Level 8.4 Exam/Review of Systems Exam Vitals Vital Signs Date Temp Pulse Resp B/P (MAP) Pulse Ox O2 O2 Flow FiO2 Time Delivery Rate 02/21/19 98.0 18 122/87 94 Room Air 16:09 (99) 02/21/19 77 08:44 Intake and Output 02/20/19 02/20/19 02/21/19 1515:00 23:00 07:00 IntakeIntake Total 200 ml 1200 ml 200 ml BalanceBalance 200 ml 1200 ml 200 ml Constitutional: alert, oriented Neck: supple Respiratory: clear to auscultation Cardiovascular: nl pulses Gastrointestinal: soft, non-tender, other (Status post right inguinal hernia repair) Musculoskeletal: nl extremities to inspection Extremities: normal pulses Neurological: nl mental status Skin: nl turgor Results Results 24hrs Laboratory Tests Test 02/21/19 06:19 White Blood Count 12.1 H Red Blood Count 4.34 Hemoglobin 13.0 Hematocrit 39.9 Mean Corpuscular Volume 91.9 Mean Corpuscular Hemoglobin 30.0 Mean Corpuscular Hemoglobin Concent 32.6 Red Cell Distribution Width 12.3 Platelet Count 200 Mean Platelet Volume 9.7 Immature Granulocytes % 3.900 H Neutrophils % 74.4 Lymphocytes % 14.2 L Monocytes % 5.1 Eosinophils % 1.7 Basophils % 0.7 Nucleated Red Blood Cells % 0.0 Immature Granulocytes # 0.470 H Neutrophils # 9.0 H Lymphocytes # 1.7 Monocytes # 0.6 Eosinophils # 0.2 Basophils # 0.1 Nucleated Red Blood Cells # 0.0 Sodium Level 139 Potassium Level 4.2 Chloride Level 110 Carbon Dioxide Level 24 Anion Gap 5 Blood Urea Nitrogen 17 Creatinine 0.87 Est Glomerular Filtrat Rate mL/min > 60 Glucose Level 85 Calcium Level 8.4 Medications Medication Current Medications Acetaminophen/ Hydrocodone Bitart ([place] (5/325)) 1 tab Q4H PRN PO MODERATE PAIN LEVEL 4-6 Last administered on 02/21/19at 17:12; Admin Dose 1 TAB; Start 02/18/19 at 15:30 Ondansetron HCl (Zofran Inj) 4 mg Q4H PRN IV NAUSEA AND/OR VOMITING Last administered on 02/21/19at 15:05; Admin Dose 4 MG; Start 02/18/19 at 15:30 Acetaminophen (Tylenol Tab) 325 mg Q4H PRN PO MILD PAIN(1-3)OR ELEVATED TEMP; Start 02/18/19 at 15:30 Polyethylene Glycol (Miralax) 17 gm BID PO Last administered on 02/20/19at 21:28; Admin Dose 17 GM; Start 02/19/19 at 09:00 Ketorolac Tromethamine (Toradol) 30 mg Q6H IV Last administered on 02/21/19 14:19; Admin Dose 30 MG; Start 02/19/19 at 13:30; Stop 02/22/19 at 13:29 Methylnaltrexone [place] (Relistor) 12 mg DAILY SC Last administered on at 08:12; Admin Dose 12 MG; Start 02/19/19 at 13:30 Pantoprazole (Protonix Tab) 40 mg DAILY@06 PO Last administered on 02/20/19at 05:54; Admin Dose 40 MG; Start 02/20/19 at 06:00 Lactulose (Enulose) 20 gm Q8 PRN PO CONSTIPATION; Start 02/19/19 at 18:00 Piperacillin Sod/ Tazobactam Sod 100 ml @ 200 mls/hr Q8 IVPB Last administered on 02/21/19at 15:06; Admin Dose 200 MLS/HR; Start 02/19/19 at 18:00 Metronidazole 100 ml @ 100 mls/hr Q8 IVPB Last administered on 02/21/19 14:19; Admin Dose 100 MLS/HR; Start 02/19/19 at 18:30 CORBIN BAÑUELOS February 21, 2019 18:27
[2019-02-21 19:45] VITALS: BP 110/75; PULSE 82; RESP 18
--- NOTE | 2019-02-21 20:44 | CONS ---
Assessment/Plan Assessment/Plan Hospital Course (Demo Recall) - probable hematoma or serosanguinous fluid collection in R inguinal region, 1.0 x 6.4 x 2.7 cm, s/p VINCENT guided drainage on 02/21/2019 - h/o repair of incarcerated R inguinal hernia with mesh on 02/14/2019 - constipation on imaging (Pt did not feel constipated) - h/o L partial mastectomy in 2018 - fibroadenomatoid nodule of L breast - h/o hysterectomy recommendations - pending results: culture results of fluid collection - continue IV pip/tazo empirically. OK to d/c metronidazole management d/w Pt Consultation Date/Type/Reason Admit Date/Time February 20, 2019 at 12:17 Date of Consultation: February 21, 2019 Type of Consult ID Reason for Consultation possible infection of R inguinal area post-surgery Requesting Provider: CORBIN MILLS Date/Time of Note DATE: 02/21/19 TIME: 20:23 Hx of Present Illness This is a 48 yo female who had repair of incarcerated R inguinal hernia with mesh on 02/14/2019. The patient was discharged home. Next three days she has had low grade post-surgical pain only. In the evening of 02/18/2019 she started experiencing worsening pain of R inguinal area. The pain was rated at "20" on the scale of 1-10. Pt presented at ER. CT showed postsurgical changes of R inguinal hernia repair, small fluid in R inguinal canal, either postoperative changes or abscess. It also showed constipation although Pt was having BM and did not feel constipated. Her VINCENT on 02/19/2019 showed fluid collection in R inguinal region measuring 1.0 x 6.4 x 2.7 cm, either abscess, hematoma, or seroma. Pip/tazo and metronidazole were started. Pt was also given laxatives and enema. Today Pt underwent image guided drainage of R inguinal fluid collection. 20mL was aspirated, suggesting post-operative hematoma. At present, Pt reports pain improved to 5. ANNALISE Mills requested ID consultation on this Pt. Constitutional: improved, chills, poor po Eyes: no complaints ENT: no complaints Respiratory: no complaints Cardiovascular: no complaints Gastrointestinal: decreased appetite, flatus, passing stool; No diarrhea Genitourinary: flank pain (R); No bleeding, No dysuria Musculoskeletal: no complaints Skin: erythema (R inguinal area, improved now) Neurologic: no complaints Past Medical History Medical History: other (fibroadenoma of L breast) Home Meds Reported Medications Atorvastatin Calcium* (Atorvastatin Calcium*) 20 Mg Tablet, 20 MG PO QHS, #30 TAB 02/18/19 Cyclobenzaprine Hcl* (Cyclobenzaprine Hcl*) 10 Mg Tablet, 10 MG PO DAILY PRN for MUSCLE SPASMS, #60 TAB 02/14/19 Medications Current Medications Acetaminophen/ Hydrocodone Bitart ([place] (5/325)) 1 tab Q4H PRN PO MODERATE PAIN LEVEL 4-6 Last administered on 02/21/19 17:12; Admin Dose 1 TAB; Start at 15:30 Ondansetron HCl (Zofran Inj) 4 mg Q4H PRN IV NAUSEA AND/OR VOMITING Last administered on 02/21/19 15:05; Admin Dose 4 MG; Start 02/18/19 at 15:30 Acetaminophen (Tylenol Tab) 325 mg Q4H PRN PO MILD PAIN(1-3)OR ELEVATED TEMP; Start 02/18/19 at 15:30 Polyethylene Glycol (Miralax) 17 gm BID PO Last administered on 02/20/19 21:28; Admin Dose 17 GM; Start 02/19/19 at 09:00 Ketorolac Tromethamine (Toradol) 30 mg Q6H IV Last administered on 02/21/19 14:19; Admin Dose 30 MG; Start 02/19/19 at 13:30; Stop 02/22/19 at 13:29 Methylnaltrexone [place] (Relistor) 12 mg DAILY SC Last administered on 02/20/19at 08:12; Admin Dose 12 MG; Start 02/19/19 at 13:30 Pantoprazole (Protonix Tab) 40 mg DAILY@06 PO Last administered on 02/20/19 05:54; Admin Dose 40 MG; Start 02/20/19 at 06:00 Lactulose (Enulose) 20 gm Q8 PRN PO CONSTIPATION; Start 02/19/19 at 18:00 Piperacillin Sod/ Tazobactam Sod 100 ml @ 200 mls/hr Q8 IVPB Last administered on 02/21/19 15:06; Admin Dose 200 MLS/HR; Start 02/19/19 at 18:00 Metronidazole 100 ml @ 100 mls/hr Q8 IVPB Last administered on 02/21/19at 14 :19; Admin Dose 100 MLS/HR; Start 02/19/19 at 18:30 Allergies: Coded Allergies: No Known Allergy (Unverified , 02/14/19) NKA PER PRE-OP SHEET Past Surgical History Past Surgical Hx: other (L partial mastectomy, hysterectomy) Social History Alcohol Use: none Smoking Status: Never smoker Drug Use: none Exam/Review of Systems Exam Vitals Vital Signs Date Temp Pulse Resp B/P (MAP) Pulse Ox O2 O2 Flow FiO2 Time Delivery Rate 02/21/19 98.0 18 122/87 94 Room Air 16:09 (99) 02/21/19 77 08:44 Intake and Output 02/20/19 02/20/19 02/21/19 1515:00 23:00 07:00 IntakeIntake Total 200 ml 1200 ml 200 ml BalanceBalance 200 ml 1200 ml 200 ml Constitutional: alert, oriented, well developed Psych: no complaints, nl mood/affect Head: normocephalic, atraumatic Eyes: nl conjunctiva, nl lids ENMT: nl external ears & nose, nl nasal mucosa & septum Neck: non-tender Respiratory: clear to auscultation, normal air movement Cardiovascular: regular rate and rhythm, nl pulses Gastrointestinal: soft, non-tender; No distended Genitourinary - Female: other (R inguinal: surgical site has steristrips, +dried blood without induration, fluctuance or significant tenderness) Musculoskeletal: nl extremities to inspection Extremities: normal pulses Neurological: PSYCHOLOG[employer] ENGINE[employer] II-XII intact, nl mental status, nl speech Skin: nl turgor, ecchymosis Results Result Diagram: 02/21/1961802/21/19618 Results 24hrs Laboratory Tests Test 02/21/19 06:19 White Blood Count 12.1 H Red Blood Count 4.34 Hemoglobin 13.0 Hematocrit 39.9 Mean Corpuscular Volume 91.9 Mean Corpuscular Hemoglobin 30.0 Mean Corpuscular Hemoglobin Concent 32.6 Red Cell Distribution Width 12.3 Platelet Count 200 Mean Platelet Volume 9.7 Immature Granulocytes % 3.900 H Neutrophils % 74.4 Lymphocytes % 14.2 L Monocytes % 5.1 Eosinophils % 1.7 Basophils % 0.7 Nucleated Red Blood Cells % 0.0 Immature Granulocytes # 0.470 H Neutrophils # 9.0 H Lymphocytes # 1.7 Monocytes # 0.6 Eosinophils # 0.2 Basophils # 0.1 Nucleated Red Blood Cells # 0.0 Sodium Level 139 Potassium Level 4.2 Chloride Level 110 Carbon Dioxide Level 24 Anion Gap 5 Blood Urea Nitrogen 17 Creatinine 0.87 Est Glomerular Filtrat Rate mL/min > 60 Glucose Level 85 Calcium Level 8.4 Medications Medication Current Medications Acetaminophen/ Hydrocodone Bitart ([place] (5/325)) 1 tab Q4H PRN PO MODERATE PAIN LEVEL 4-6 Last administered on 02/21/19 17:12; Admin Dose 1 TAB; Start 02/18/19 at 15:30 Ondansetron HCl (Zofran Inj) 4 mg Q4H PRN IV NAUSEA AND/OR VOMITING Last administered on 02/21/19 15:05; Admin Dose 4 MG; Start 02/18/19 at 15:30 Acetaminophen (Tylenol Tab) 325 mg Q4H PRN PO MILD PAIN(1-3)OR ELEVATED TEMP; Start 02/18/19 at 15:30 Polyethylene Glycol (Miralax) 17 gm BID PO Last administered on 02/20/19 21:28; Admin Dose 17 GM; Start 02/19/19 at 09:00 Ketorolac Tromethamine (Toradol) 30 mg Q6H IV Last administered on 02/21/19 14:19; Admin Dose 30 MG; Start 02/19/19 at 13:30; Stop 02/22/19 at 13:29 Methylnaltrexone [place] (Relistor) 12 mg DAILY SC Last administered on 02/20/19 08:12; Admin Dose 12 MG; Start 02/19/19 at 13:30 Pantoprazole (Protonix Tab) 40 mg DAILY@06 PO Last administered on 02/20/19 05:54; Admin Dose 40 MG; Start 02/20/19 at 06:00 Lactulose (Enulose) 20 gm Q8 PRN PO CONSTIPATION; Start 02/19/19 at 18:00 Piperacillin Sod/ Tazobactam Sod 100 ml @ 200 mls/hr Q8 IVPB Last administered on 02/21/19 15:06; Admin Dose 200 MLS/HR; Start 02/19/19 at 18:00 Metronidazole 100 ml @ 100 mls/hr Q8 IVPB Last administered on 02/21/19at 14:19; Admin Dose 100 MLS/HR; Start 02/19/19 at 18:30 JOANN KING M.D. February 21, 2019 20:33
[2019-02-22] MEDS: KETOROLAC 30 MG INJ IV SCH ×2 (01:30→06:37)
[2019-02-22 02:10] VITALS: BP 109/60; PULSE 73; RESP 17
[2019-02-22] MEDS: PANTOPRAZOLE (EC) 40 MG TAB PO SCH (06:37)
[2019-02-22] MEDS: PIPER-TAZO 3.375 GM IV (PMX) 100 ML IVPB SCH ×2 (06:37→13:49)
[2019-02-22 07:30] VITALS: BP 108/69; PULSE 66; RESP 20
[2019-02-22] MEDS: METHYLNALTREXONE 12 MG/0.6 ML VIAL SC SCH (08:35)
[2019-02-22] MEDS: POLYETHYLENE GLYCOL 17 GM PACKET PO SCH ×2 (08:35→21:30)
[2019-02-22] MEDS: HYDROCODONE/APAP (5/325) TAB PO PRN ×2 (13:48→21:30)
[2019-02-22 14:00] VITALS: BP 104/68; PULSE 75; RESP 18
--- NOTE | 2019-02-22 19:28 | CONS ---
Assessment/Plan Assessment/Plan Hospital Course (Demo Recall) - probable hematoma or serosanguinous fluid collection in R inguinal region, 1.0 x 6.4 x 2.7 cm, s/p VINCENT guided drainage on 02/21/2019 - h/o repair of incarcerated R inguinal hernia with mesh on 02/14/2019 - constipation on imaging (Pt did not feel constipated) - h/o L partial mastectomy in 2018 - fibroadenomatoid nodule of L breast - h/o hysterectomy recommendations - pending results: culture results of fluid collection - ordered: VINCENT of LUE - changed IV pip/tazo (02/19/2019-02/21/2019) to PO Augmentin per (Pt's request) (02/22/2019-) management d/w Pt Consultation Date/Type/Reason Admit Date/Time February 20, 2019 at 12:17 Initial Consult Date 02/21/19 Type of Consult ID Requesting Provider: CORBIN BAÑUELOS Date/Time of Note DATE: 02/22/19 TIME: 19:21 24 HR Interval Summary Constitutional: no complaints, other (wants to go home) Detailed Summary Eyes: no complaints ENT: no complaints Respiratory: no complaints Cardiovascular: other (pain in her LUE after multiple failed attempts to place a heplock) Gastrointestinal: no complaints Genitourinary: other (+discomfort and swelling of R inguinal area remains that same) Musculoskeletal: no complaints Skin: no complaints Neurologic: no complaints Exam/Review of Systems Exam Vitals Vital Signs Date Temp Pulse Resp B/P (MAP) Pulse Ox O2 O2 Flow FiO2 Time Delivery Rate 02/22/19 98.5 75 18 104/68 97 Room Air 14:00 (80) Intake and Output 02/21/19 02/21/19 02/22/19 1515:00 23:00 07:00 IntakeIntake Total 100 ml 541 ml OutputOutput Total 200 ml BalanceBalance 100 ml 341 ml Constitutional: alert, oriented, well developed Psych: no complaints, nl mood/affect Head: normocephalic, atraumatic Eyes: nl conjunctiva, nl lids, nl sclera ENMT: nl external ears & nose, nl nasal mucosa & septum, mucosa pink and moist Neck: other (not swollen) Respiratory: clear to auscultation, normal air movement Cardiovascular: regular rate and rhythm, nl pulses, other (+tender L forearm) Gastrointestinal: soft, non-tender Extremities: No edema Neurological: [employer] II-XII intact, nl mental status, nl speech Skin: ecchymosis (LUE) Results Result Diagram: 02/22/1942702/22/198 Results 24hrs Laboratory Tests Test 02/22/19 04:28 White Blood Count 11.1 H Red Blood Count 4.69 Hemoglobin 14.1 Hematocrit 42.5 Mean Corpuscular Volume 90.6 Mean Corpuscular Hemoglobin 30.1 Mean Corpuscular Hemoglobin Concent 33.2 Red Cell Distribution Width 12.4 Platelet Count 226 Mean Platelet Volume 9.6 Immature Granulocytes % 4.000 H Neutrophils % 74.9 Lymphocytes % 13.7 L Monocytes % 4.8 Eosinophils % 1.9 Basophils % 0.7 Nucleated Red Blood Cells % 0.0 Immature Granulocytes # 0.440 H Neutrophils # 8.3 H Lymphocytes # 1.5 Monocytes # 0.5 Eosinophils # 0.2 Basophils # 0.1 Nucleated Red Blood Cells # 0.0 Sodium Level 140 Potassium Level 3.9 Chloride Level 107 Carbon Dioxide Level 25 Anion Gap 8 Blood Urea Nitrogen 11 Creatinine 0.83 Est Glomerular Filtrat Rate mL/min > 60 Glucose Level 152 Calcium Level 8.5 Medications Medication Current Medications Acetaminophen/ Hydrocodone Bitart ([place] (5/325)) 1 tab Q4H PRN PO MODERATE PAIN LEVEL 4-6 Last administered on 02/22/19at 13:48; Admin Dose 1 TAB; Start 02/18/19 at 15:30 Ondansetron HCl (Zofran Inj) 4 mg Q4H PRN IV NAUSEA AND/OR VOMITING Last administered on 02/21/19at 21:38; Admin Dose 4 MG; Start 02/18/19 at 15:30 Acetaminophen (Tylenol Tab) 325 mg Q4H PRN PO MILD PAIN(1-3)OR ELEVATED TEMP; Start 02/18/19 at 15:30 Polyethylene Glycol (Miralax) 17 gm BID PO Last administered on 02/22/19at 08:35; Admin Dose 17 GM; Start 02/19/19 at 09:00 Methylnaltrexone [place] (Relistor) 12 mg DAILY SC Last administered on 02/22/19at 08:35; Admin Dose 12 MG; Start 02/19/19 at 13:30 Pantoprazole (Protonix Tab) 40 mg DAILY@06 PO Last administered on 02/22/19at 06:37; Admin Dose 40 MG; Start 02/20/19 at 06:00 Lactulose (Enulose) 20 gm Q8 PRN PO CONSTIPATION; Start 02/19/19 at 18:00 Piperacillin Sod/ Tazobactam Sod 100 ml @ 200 mls/hr Q8 IVPB Last administered on 02/22/19at 13:49; Admin Dose 200 MLS/HR; Start 02/19/19 at 18:00 JOANN KING M.D. February 22, 2019 19:28
[2019-02-22 20:00] VITALS: BP 133/76; PULSE 76; RESP 18
[2019-02-22] MEDS: AMOXICILLIN/CLAV 875 MG TAB PO SCH (21:30)
[2019-02-23 02:00] VITALS: BP 91/53; PULSE 74; RESP 19
[2019-02-23] MEDS: PANTOPRAZOLE (EC) 40 MG TAB PO SCH (06:17)
[2019-02-23 08:00] VITALS: BP 103/68; PULSE 72; RESP 19
[2019-02-23] MEDS: AMOXICILLIN/CLAV 875 MG TAB PO SCH ×2 (08:45→21:03)
[2019-02-23] MEDS: POLYETHYLENE GLYCOL 17 GM PACKET PO SCH ×2 (08:45→21:03)
[2019-02-23] MEDS: HYDROCODONE/APAP (5/325) TAB PO PRN ×2 (08:45→21:03)
[2019-02-23] MEDS: METHYLNALTREXONE 12 MG/0.6 ML VIAL SC SCH (08:47)
--- NOTE | 2019-02-23 12:50 | PN ---
Date/Time of Note Date/Time of Note DATE: 02/23/19 TIME: 12:50 Assessment/Plan VTE Prophylaxis Risk score (from Nsg)>0 risk: 1 SCD applied (from Nsg): Yes Pharmacological prophylaxis: LMWH Lines/Catheters IV Catheter Type (from Nrsg): Peripheral IV Urinary Cath still in place: No Assessment/Plan Hospital Course -Right inguinal postoperative hematoma versus seroma versus abscess, status aspiration of a right inguinal post-operative hematoma. -Abdominal pain with recent surgery for incarcerated right inguinal hernia by Dr. Crespo. Dr. Curtis is following in gastroenterology consultation. -Constipation, resolved Result Diagram: 02/22/1942702/22/19427 Subjective 24 Hr Interval Summary Free Text/Dictation Patient has some abdominal pain Exam/Review of Systems Exam Vitals Vital Signs Date Temp Pulse Resp B/P (MAP) Pulse Ox O2 O2 Flow FiO2 Time Delivery Rate 02/23/19 98.0 72 19 103/68 96 Room Air 08:00 (80) Intake and Output 02/22/19 02/22/19 02/23/19 1515:00 23:00 07:00 IntakeIntake Total 880 ml BalanceBalance 880 ml Constitutional: well developed Head: normocephalic, atraumatic Neck: supple Respiratory: clear to auscultation Cardiovascular: regular rate and rhythm Gastrointestinal: soft, tender Extremities: normal pulses Medications Medication Current Medications Acetaminophen/ Hydrocodone Bitart ([place] (5/325)) 1 tab Q4H PRN PO MODERATE PAIN LEVEL 4-6 Last administered on 02/23/19at 08:45; Admin Dose 1 TAB; Start 02/18/19 at 15:30 Ondansetron HCl (Zofran Inj) 4 mg Q4H PRN IV NAUSEA AND/OR VOMITING Last administered on 02/21/19at 21:38; Admin Dose 4 MG; Start 02/18/19 at 15:30 Acetaminophen (Tylenol Tab) 325 mg Q4H PRN PO MILD PAIN(1-3)OR ELEVATED TEMP; Start 02/18/19 at 15:30 Polyethylene Glycol (Miralax) 17 gm BID PO Last administered on 02/23/19at 08:45; Admin Dose 17 GM; Start 02/19/19 at 09:00 Methylnaltrexone [place] (Relistor) 12 mg DAILY SC Last administered on 02/22/19at 08:35; Admin Dose 12 MG; Start 02/19/19 at 13:30 Pantoprazole (Protonix Tab) 40 mg DAILY@06 PO Last administered on 02/23/19at 06:17; Admin Dose 40 MG; Start 02/20/19 at 06:00 Lactulose (Enulose) 20 gm Q8 PRN PO CONSTIPATION; Start 02/19/19 at 18:00 Amoxicillin/ Clavulanate Potassium (Augmentin) 875 mg Q12 PO Last administered on 02/23/19at 08:45; Admin Dose 875 MG; Start 02/22/19 at 21:00 HALEIGH SANTIZO Feb 23, 2019 12:50
[2019-02-23 14:00] VITALS: BP 111/67; PULSE 70; RESP 17
[2019-02-23 20:00] VITALS: BP 121/80; PULSE 90; RESP 18
--- NOTE | 2019-02-23 23:31 | PN ---
DATE: 02/23/2019 SUBJECTIVE: I am seeing this patient for follow up for Dr. Veloz. Apparently, the patient was admitted because of the right lower quadrant severe pain about 1 week post-operation, which was done for right inguinal hernia. This patient came to the emergency room and was admitted through there. The patient underwent CT scan and ultrasound evaluation and there was a question of seroma versus hematoma versus abscess in the right inguinal canal area. This was aspirated under ultrasound guidance and per report 20 mL of blood was aspirated. I am not sure if this was sent for culture not, but there is no mention of abscess. The patient also was seen by Dr. Harding from infectious disease and patient is on antibiotic treatment. CT scan also was done, which was read as follows: 1. Postsurgical changes from right inguinal hernia repair. There is subcutaneous emphysema along the right lower ventral abdominal wall and right inguinal canal. Small fluid is seen within the right inguinal canal. Findings likely reflect postoperative changes. Early or developing abscess cannot be excluded on this examination. 2. There is a tubular soft tissue density structure along the cecum from the terminal ileum and appendix. Findings may reflect a Meckel's diverticulum. A neoplastic process is not excluded on this examination. PHYSICAL EXAMINATION: GENRAL: Today, the patient is awake, alert, oriented, complains of moderate pain in the right lower quadrant area. Has tolerated food, but appetite is not that good. Has had bowel movement. HEART: Regular. LUNGS: Clear. ABDOMEN: Soft, is not distended. Right lower quadrant incision appears clean. There is some tenderness on deep pressure in this area. PLAN: Since the patient's veins on the upper extremity has been damaged by local trauma phlebitis they have discontinue the IV and the patient is getting p.o. antibiotic Augmentin. Suggestion: Continue the antibiotics per infectious disease and I think this report of some tubular structure adjacent to the cecum, which I saw myself right now. It appears to be lateral and posterior to the cecum, has to be further addressed by the admitting physician and the surgeon to find out exactly what these structures could be. I am going to discuss with Dr. Veloz later on about this to make sure this is not an early and now aborted appendicitis. Thank you for followup. We will continue along with Dr. Veloz and others. Dictated By: WILSON DUMONT MD PS/NTS Conf#: [id number] [facility]#: [id number] CC: ISAC VO MD; PURVI VELOZ MD;*EndCC* MTDD
--- NOTE | 2019-02-23 23:42 | CONS ---
Assessment/Plan Assessment/Plan Hospital Course (Demo Recall) - probable hematoma or serosanguinous fluid collection in R inguinal region, 1.0 x 6.4 x 2.7 cm, s/p VINCENT guided drainage on 02/21/2019 - h/o repair of incarcerated R inguinal hernia with mesh on 02/14/2019 - thrombophlebitis of L cephalic vein in the upper arm, up to the level of the antecubital vein. - constipation on imaging (Pt did not feel constipated) - h/o L partial mastectomy in 2018 - fibroadenomatoid nodule of L breast - h/o hysterectomy recommendations - pending results: final culture results of fluid collection - continue PO Augmentin (02/22/2019-). Pt was on IV pip/tazo (02/19/2019- 02/21/2019) before. Plan to complete ABX on 02/26/2019 management d/w Pt Consultation Date/Type/Reason Admit Date/Time February 20, 2019 at 12:17 Initial Consult Date 02/21/19 Type of Consult ID Requesting Provider: CORBIN BAÑUELOS Date/Time of Note DATE: 02/23/19 TIME: 23:42 24 HR Interval Summary Constitutional: improved Detailed Summary Eyes: no complaints ENT: no complaints Respiratory: no complaints Cardiovascular: other (pain of LUE after multiple attempts to establish an IV access) Gastrointestinal: pain (less than before) Genitourinary: no complaints Musculoskeletal: no complaints Skin: no complaints Neurologic: no complaints Exam/Review of Systems Exam Vitals Vital Signs Date Temp Pulse Resp B/P (MAP) Pulse Ox O2 O2 Flow FiO2 Time Delivery Rate 02/23/19 97.9 90 18 121/80 98 20:00 (94) 02/23/19 Room Air 14:00 Intake and Output 02/22/19 02/22/19 02/23/19 1515:00 23:00 07:00 IntakeIntake Total 880 ml BalanceBalance 880 ml Constitutional: alert, oriented, well developed Psych: no complaints, nl mood/affect Head: normocephalic, atraumatic Eyes: nl conjunctiva, nl lids ENMT: nl external ears & nose, nl nasal mucosa & septum, mucosa pink and moist Neck: non-tender Respiratory: normal air movement Cardiovascular: other (point tenderness of LUE); No edema Gastrointestinal: soft, non-tender Genitourinary - Female: other (R inguinal area is covered, not swollen, not indurated and minimally TTP) Musculoskeletal: nl extremities to inspection Extremities: No edema Neurological: nl mental status, nl speech Skin: nl turgor; No rash or lesions Results Result Diagram: 02/22/1942702/22/19427 Medications Medication Current Medications Acetaminophen/ Hydrocodone Bitart ([place] (5/325)) 1 tab Q4H PRN PO MODERATE PAIN LEVEL 4-6 Last administered on 02/23/19 21:03; Admin Dose 1 TAB; Start 02/18/19 at 15:30 Ondansetron HCl (Zofran Inj) 4 mg Q4H PRN IV NAUSEA AND/OR VOMITING Last administered on 02/21/19 21:38; Admin Dose 4 MG; Start 02/18/19 at 15:30 Acetaminophen (Tylenol Tab) 325 mg Q4H PRN PO MILD PAIN(1-3)OR ELEVATED TEMP; Start 02/18/19 at 15:30 Polyethylene Glycol (Miralax) 17 gm BID PO Last administered on 02/23/19 21:03; Admin Dose 17 GM; Start 02/19/19 at 09:00 Methylnaltrexone [place] (Relistor) 12 mg DAILY SC Last administered on 02/22/19at 08:35; Admin Dose 12 MG; Start 02/19/19 at 13:30 Pantoprazole (Protonix Tab) 40 mg DAILY@06 PO Last administered on 02/23/19 06:17; Admin Dose 40 MG; Start 02/20/19 at 06:00 Lactulose (Enulose) 20 gm Q8 PRN PO CONSTIPATION; Start 02/19/19 at 18:00 Amoxicillin/ Clavulanate Potassium (Augmentin) 875 mg Q12 PO Last administered on 02/23/19 21:03; Admin Dose 875 MG; Start 02/22/19 at 21:00 JOANN KING M.D. Feb 23, 2019 23:42
[2019-02-24] MEDS: PANTOPRAZOLE (EC) 40 MG TAB PO SCH ×2 (06:03→08:12)
[2019-02-24 08:11] VITALS: BP 116/66; PULSE 73; RESP 16
[2019-02-24] MEDS: POLYETHYLENE GLYCOL 17 GM PACKET PO SCH ×2 (08:52→21:00)
[2019-02-24] MEDS: HYDROCODONE/APAP (5/325) TAB PO PRN ×2 (08:53→21:20)
[2019-02-24] MEDS: AMOXICILLIN/CLAV 875 MG TAB PO SCH ×2 (08:53→21:20)
[2019-02-24] MEDS: METHYLNALTREXONE 12 MG/0.6 ML VIAL SC SCH (08:54)
--- NOTE | 2019-02-24 11:53 | PN ---
Date/Time of Note Date/Time of Note DATE: 02/24/19 TIME: 11:52 Assessment/Plan VTE Prophylaxis Risk score (from Nsg)>0 risk: 2 SCD applied (from Nsg): Yes Pharmacological prophylaxis: LMWH Lines/Catheters IV Catheter Type (from Nrsg): Peripheral IV Urinary Cath still in place: No Assessment/Plan Hospital Course -Right inguinal postoperative hematoma versus seroma versus abscess, status aspiration of a right inguinal post-operative hematoma. -Abdominal pain with recent surgery for incarcerated right inguinal hernia by Dr. Crespo. Dr. Curtis is following in gastroenterology consultation. -Constipation, resolved Result Diagram: 02/22/1942702/22/19427 Subjective 24 Hr Interval Summary Free Text/Dictation Patient denies any pain Exam/Review of Systems Exam Vitals Vital Signs Date Temp Pulse Resp B/P (MAP) Pulse Ox O2 O2 Flow FiO2 Time Delivery Rate 02/24/19 98.1 73 16 116/66 100 Room Air 08:11 (83) Intake and Output 02/23/19 02/23/19 02/24/19 1515:00 23:00 07:00 IntakeIntake Total 900 ml BalanceBalance 900 ml Constitutional: well developed Head: normocephalic, atraumatic Neck: supple Respiratory: clear to auscultation Cardiovascular: regular rate and rhythm Gastrointestinal: soft, non-tender Extremities: normal pulses Medications Medication Current Medications Acetaminophen/ Hydrocodone Bitart ([place] (5/325)) 1 tab Q4H PRN PO MODERATE PAIN LEVEL 4-6 Last administered on 02/24/19at 08:53; Admin Dose 1 TAB; Start 02/18/19 at 15:30 Ondansetron HCl (Zofran Inj) 4 mg Q4H PRN IV NAUSEA AND/OR VOMITING Last ad ministered on 02/21/19at 21:38; Admin Dose 4 MG; Start 02/18/19 at 15:30 Acetaminophen (Tylenol Tab) 325 mg Q4H PRN PO MILD PAIN(1-3)OR ELEVATED TEMP; Start 02/18/19 at 15:30 Polyethylene Glycol (Miralax) 17 gm BID PO Last administered on 02/24/19at 08:52; Admin Dose 17 GM; Start 02/19/19 at 09:00 Methylnaltrexone [place] (Relistor) 12 mg DAILY SC Last administered on 02/22/19at 08:35; Admin Dose 12 MG; Start 02/19/19 at 13:30 Pantoprazole (Protonix Tab) 40 mg DAILY@06 PO Last administered on 02/24/19at 08:12; Admin Dose 40 MG; Start 02/20/19 at 06:00 Lactulose (Enulose) 20 gm Q8 PRN PO CONSTIPATION; Start 02/19/19 at 18:00 Amoxicillin/ Clavulanate Potassium (Augmentin) 875 mg Q12 PO Last administered on 02/24/19at 08:53; Admin Dose 875 MG; Start 02/22/19 at 21:00 HALEIGH SANTIZO Feb 24, 2019 11:53
[2019-02-24 14:00] VITALS: BP 108/69; PULSE 68; RESP 16
--- NOTE | 2019-02-24 18:00 | PN ---
DATE: 02/24/2019 SUBJECTIVE: No specific complaint, minimal pain, tolerating diet. Actually feels that her appetite has increased and would like to be discharged. Has had 2 bowel movements. OBJECTIVE: GENERAL: Awake, alert, oriented. VITAL SIGNS: Temperature maximum 98.2, heart rate 68, respirations 16, blood pressure 108/69, saturation 97% on room air. HEART: Regular. LUNGS: Clear. ABDOMEN: Soft. SKIN: Incision line is clean. There is mild tenderness on pressure over the wound and vicinity of the wound, so I cannot say if this pressure was felt due to pathology in the subcutaneous tissue or any problem deep in the peritoneal cavity. LABORATORY DATA: There is no hematology done today. There is no chemistry done today. HOSPITAL COURSE: Once again, the report of the CT scan which was done on admission states that there is some tubular structure lateral to the cecum between the lateral part of the cecum and abdominal wall laterally and the radiologist states that this is separate from the appendix. This could be a Meckel diverticulum or any other pathology. my personal opinion is that it is also possible to be an abnormally located retrocecal retroperitoneal appendix. We will check the CT scan with radiologist tomorrow and then Dr. Crespo will make final decision. Dictated By: WILSON DUMONT MD PS/NTS Conf#: [id number] DID#: [id number] CC: ISAC VO MD; PURVI CRESPO MD;*EndCC* MTDD
[2019-02-24 20:00] VITALS: BP 122/66; PULSE 73; RESP 17
--- NOTE | 2019-02-24 22:21 | CONS ---
Assessment/Plan Assessment/Plan Hospital Course (Demo Recall) - probable hematoma or serosanguinous fluid collection in R inguinal region, 1.0 x 6.4 x 2.7 cm, s/p VINCENT guided drainage on 02/21/2019. Its culture was negative - h/o repair of incarcerated R inguinal hernia with mesh on 02/14/2019 - thrombophlebitis of L cephalic vein in the upper arm, up to the level of the antecubital vein - a tubular soft tissue density structure along the cecum, separate from the terminal ileum and appendix, Meckel's diverticulum vs. another etiology - constipation on imaging (Pt did not feel constipated however) - h/o L partial mastectomy in 2018 - fibroadenomatoid nodule of L breast - h/o hysterectomy recommendations - pending results: final culture results of fluid collection - continue PO Augmentin (02/22/2019-). Pt was on IV pip/tazo (02/19/2019- 02/21/2019) before. Plan to complete ABX on 02/26/2019 - Pt and her family asked me if they were waiting for a test, etc prior to discharge. I explained to them Dr. Nicole's plan of reviewing a soft tissue density structure along the cecum with a radiologist and Dr. Crespo management d/w Pt, her , daughter, KARLA Taylor and SILK SCREEN OPERATOR addendum to above: - while I was with Pt and her family, Pt's IV machine was beeping throughout. The white board in her room did not have name of her nurse or charge nurse. Pt and the family said they did not press the call button because they thought nobody was on her case. Pt's daughter who spoke both [place]ian and [place]ish helped me communicate with Pt. I instructed her SILK SCREEN OPERATOR to write the names on the board. I instructed Pt's KARLA Taylor to turn off the beeping sound, re-introduce himself and to instruct Pt and her family how to reach him. KARLA Taylor laughed at me and said "they know how to use the call button and reach me because I speak [place]...I was going to turn off the IV sound but you (referring to me) are blocking my way." I told KARLA Taylor that I wanted to talk to him face to face to confirm that her need is attended. Then he laughingly said "you are blocking my way" again. I found these statements unprofessional and inappropriate. I reported this incidence to charge nurse Jaic. Consultation Date/Type/Reason Admit Date/Time February 20, 2019 at 12:17 Initial Consult Date 02/21/19 Type of Consult ID Requesting Provider: CORBIN BAÑUELOS Date/Time of Note DATE: 02/24/19 TIME: 21:48 24 HR Interval Summary Constitutional: improved Detailed Summary Eyes: no complaints ENT: no complaints Respiratory: no complaints Cardiovascular: no complaints Gastrointestinal: pain (R inguinal surgical site, pain is less) Genitourinary: no complaints Musculoskeletal: no complaints Skin: no complaints Neurologic: no complaints Exam/Review of Systems Exam Vitals Vital Signs Date Temp Pulse Resp B/P (MAP) Pulse Ox O2 O2 Flow FiO2 Time Delivery Rate 02/24/19 98.0 73 17 122/66 96 20:00 (84) 02/24/19 Room Air 14:00 Intake and Output 02/23/19 02/23/19 02/24/19 1515:00 23:00 07:00 IntakeIntake Total 900 ml BalanceBalance 900 ml Constitutional: alert, oriented, well developed Psych: no complaints, nl mood/affect Head: normocephalic, atraumatic Eyes: nl conjunctiva, nl lids, nl sclera ENMT: nl external ears & nose, nl nasal mucosa & septum, mucosa pink and moist Neck: other (not swollen) Respiratory: normal air movement Cardiovascular: No edema Gastrointestinal: soft, non-tender, surgical scars (R inguinal area: covered with steristrips); No distended Musculoskeletal: nl extremities to inspection Extremities: normal pulses Results Result Diagram: 02/22/198 02/22/19 0428 Medications Medication Current Medications Acetaminophen/ Hydrocodone Bitart ([place] (5/325)) 1 tab Q4H PRN PO MODERATE PAIN LEVEL 4-6 Last administered on 02/24/19at 21:20; Admin Dose 1 TAB; Start 02/18/19 at 15:30 Ondansetron HCl (Zofran Inj) 4 mg Q4H PRN IV NAUSEA AND/OR VOMITING Last administered on 02/21/19at 21:38; Admin Dose 4 MG; Start 02/18/19 at 15:30 Acetaminophen (Tylenol Tab) 325 mg Q4H PRN PO MILD PAIN(1-3)OR ELEVATED TEMP; Start 02/18/19 at 15:30 Polyethylene Glycol (Miralax) 17 gm BID PO Last administered on 02/24/19at 08:52; Admin Dose 17 GM; Start 02/19/19 at 09:00 Methylnaltrexone [place] (Relistor) 12 mg DAILY SC Last administered on 02/22/19at 08:35; Admin Dose 12 MG; Start 02/19/19 at 13:30 Pantoprazole (Protonix Tab) 40 mg DAILY@06 PO Last administered on 02/24/19at 08:12; Admin Dose 40 MG; Start 02/20/19 at 06:00 Lactulose (Enulose) 20 gm Q8 PRN PO CONSTIPATION; Start 02/19/19 at 18:00 Amoxicillin/ Clavulanate Potassium (Augmentin) 875 mg Q12 PO Last administered on 02/24/19at 21:20; Admin Dose 875 MG; Start 02/22/19 at 21:00 JOANN KING M.D. Feb 24, 2019 22:00
[2019-02-25] MEDS: PANTOPRAZOLE (EC) 40 MG TAB PO SCH (06:46)
[2019-02-25 07:25] VITALS: BP 88/51; PULSE 77; RESP 16
[2019-02-25] MEDS: AMOXICILLIN/CLAV 875 MG TAB PO SCH (08:43)
[2019-02-25] MEDS: POLYETHYLENE GLYCOL 17 GM PACKET PO SCH (08:43)
[2019-02-25] MEDS: METHYLNALTREXONE 12 MG/0.6 ML VIAL SC SCH (08:43)
[2019-02-25] MEDS: HYDROCODONE/APAP (5/325) TAB PO PRN (08:53)
[2019-02-25 14:09] VITALS: BP 98/53; PULSE 83; RESP 16
--- NOTE | 2019-02-25 17:32 | CONS ---
Assessment/Plan Assessment/Plan Hospital Course (Demo Recall) - probable hematoma or serosanguinous fluid collection in R inguinal region, 1.0 x 6.4 x 2.7 cm, s/p VINCENT guided drainage on 02/21/2019. Its culture was negative - h/o repair of incarcerated R inguinal hernia with mesh on 02/14/2019 - thrombophlebitis of L cephalic vein in the upper arm, up to the level of the antecubital vein - a tubular soft tissue density structure along the cecum, separate from the terminal ileum and appendix, Meckel's diverticulum vs. another etiology - constipation on imaging (Pt did not feel constipated however and has had normal BM) - h/o L partial mastectomy in 2018 - fibroadenomatoid nodule of L breast - h/o hysterectomy Recommendations: - continue PO Augmentin (02/22/2019-), plan through 02/26/2019. Pt was on IV pip/tazo (02/19/2019-02/21/2019) before. Management d/w patient, ADMINISTRATIVE COORDINATOR Lina, and with Dr. Hernadez. All questions answered. Therapeutic time provided. Consultation Date/Type/Reason Admit Date/Time February 20, 2019 at 12:17 Initial Consult Date 02/21/19 Type of Consult Infectious Disease Requesting Provider: CORBIN BAÑUELOS Date/Time of Note DATE: 02/25/19 TIME: 17:29 24 HR Interval Summary Free Text/Dictation Pt with multiple questions and asking to speak with the surgeon. States pain is currently tolerable. Denies fever, chills, SOB, n/v/d. Had formed BM today. Exam/Review of Systems Exam Vitals Vital Signs Date Temp Pulse Resp B/P (MAP) Pulse Ox O2 O2 Flow FiO2 Time Delivery Rate 02/25/19 98.3 83 16 98/53 (68) 96 Room Air 14:09 Intake and Output 02/24/19 02/24/19 02/25/19 1515:00 23:00 07:00 IntakeIntake Total 1760 ml 400 ml 480 ml BalanceBalance 1760 ml 400 ml 480 ml Constitutional: alert, oriented, well developed Psych: no complaints Head: normocephalic, atraumatic Eyes: nl conjunctiva, nl lids, nl sclera ENMT: nl external ears & nose, nl nasal mucosa & septum, mucosa pink and moist Neck: supple Respiratory: clear to auscultation, normal air movement Cardiovascular: regular rate and rhythm, nl pulses Gastrointestinal: soft, surgical scars (R inguinal wound covered with steri- strips c/d/i with expected mild TTP); No distended Musculoskeletal: nl extremities to inspection Extremities: normal pulses Neurological: nl mental status, nl speech ([place] speaking primarily) Skin: nl turgor Results Result Diagram: 02/22/1942702/22/19427 Medications Medication Current Medications Acetaminophen/ Hydrocodone Bitart ([place] (5/325)) 1 tab Q4H PRN PO MODERATE PAIN LEVEL 4-6 Last administered on 02/25/19 08:53; Admin Dose 1 TAB; Start 02/18/19 at 15:30 Ondansetron HCl (Zofran Inj) 4 mg Q4H PRN IV NAUSEA AND/OR VOMITING Last administered on 02/21/19 21:38; Admin Dose 4 MG; Start 02/18/19 at 15:30 Acetaminophen (Tylenol Tab) 325 mg Q4H PRN PO MILD PAIN(1-3)OR ELEVATED TEMP; Start 02/18/19 at 15:30 Polyethylene Glycol (Miralax) 17 gm BID PO Last administered on 02/25/19 08:43; Admin Dose 17 GM; Start 02/19/19 at 09:00 Methylnaltrexone [place] (Relistor) 12 mg DAILY SC Last administered on 02/22/19 08:35; Admin Dose 12 MG; Start 02/19/19 at 13:30 Pantoprazole (Protonix Tab) 40 mg DAILY@06 PO Last administered on 02/25/19 06:46; Admin Dose 40 MG; Start 02/20/19 at 06:00 Lactulose (Enulose) 20 gm Q8 PRN PO CONSTIPATION; Start 02/19/19 at 18:00 Amoxicillin/ Clavulanate Potassium (Augmentin) 875 mg Q12 PO Last administered on 02/25/19 08:43; Admin Dose 875 MG; Start 02/22/19 at 21:00 LISSETH CROWE NP Feb 25, 2019 17:32
[2019-02-25] MEDS ORDERED: HYDR-3601 PO (18:01)
[2019-02-25] MEDS ORDERED: AMOX1TAB10 PO (18:01)
== END 2019-02-25 18:57 | disposition home or self-care (01) | DRG 909 ==
LOC: E/R 07:36 → PP2 12:15 → OBSVTOIN 02-20 12:17 → PP2 02-21 19:40
PROVIDERS: ADMIT Internal Medicine; ATTEND Internal Medicine
PROC: 0Y953ZX Drainage of Right Inguinal Region, Percutaneous Approach, Diagnostic (ICD-10-PCS; principal; 2019-02-21)
DX: M96.841 Postprocedural hematoma of a musculoskeletal structure following other procedure (principal); M96.843 Postprocedural seroma of a musculoskeletal structure following other procedure; Z87.19 Personal history of other diseases of the digestive system; K59.00 Constipation, unspecified; I80.8 Phlebitis and thrombophlebitis of other sites; R93.3 Abnormal findings on diagnostic imaging of other parts of digestive tract; Y83.8 Other surgical procedures as the cause of abnormal reaction of the patient, or of later complication, without mention of misadventure at the time of the procedure
CPT/HCPCS: 36415; 74177; 76536; 80048; 80053; 82150; 83690; 85025; 85610; 85730; 87070; 87075; 93971; 96372; 96374; 96375; 96376; G0378; J1170; J1885; J2270; J2405; J2543; J3480; Q9967